=== PATIENT | male | born 1990 | race Hispanic/Latino ===

== ENCOUNTER 2024-08-25 19:56 | Emergency (ER) | payer SELFPAY ==
--- NOTE | 2024-08-25 19:59 | ED.GENMED ---
History of Present Illness
General
Chief Complaint: Alcohol Problem
Source: patient
Exam Limitations: none
Time Seen by Provider: 08/25/24 19:59
History of Present Illness
History of Present Illness:
See MDM
Past History
Past History
ED Past Medical History: None
ED Past Surgical History: None
Phy Exam
Physical Exam
Physical Exam:
See MDM
Scores
Withdrawal Assessment of Alcohol
Withdrawal Assessment Completed?: Not applicable
Course
Vital Signs
Initial and Last Documented VS:
Initial Vital Signs
Temp Pulse Resp BP Pulse Ox
97.9 F 76 18 126/76 99
08/25/24 20:11 08/25/24 20:11 08/25/24 20:11 08/25/24 20:11 08/25/24 20:11
Last Documented Vital Signs
Temp Pulse Resp BP Pulse Ox
97.9 F 76 18 126/76 99
08/25/24 20:11 08/25/24 20:11 08/25/24 20:11 08/25/24 20:11 08/25/24 20:11
MDM/Problems Addressed
Differential Diagnosis Includes:
HPI and MDM Narrative:
34-year-old male presenting for evaluation of alcohol intoxication. Per EMS, patient was intoxicated on a bench outside of a laund[employer]. The laundromat called the police. The police processed the patient and then called EMS. Patient does appear
intoxicated. Blood sugar within normal limits. No evidence of injury on exam. Patient does admit to drinking alcohol today. Will continue to monitor
Physical exam
General: Well appearing and non-toxic. Sitting in bed comfortably and smiling
HEENT: protecting airway
Neck: appears supple
CV: No evidence of cyanosis
Resp: No accessory muscle use
Abd: Non-distended
Extremities: No deformities
Neuro: alert. No focal deficits. Appears intoxicated
Psych: Normal affect
Skin: Intact
Problems Addressed including Acute and Chronic Conditions affecting care:
1. Alcohol intoxication
Acuity: acute
Prognosis: stable
Details: Will continue to monitor until patient is no longer clinically intoxicated
Updates
9:15 PM his friend came to pick him up. Patient is ambulated without difficulty
Differential Diagnosis (but not limited to): Alcohol intoxication, hypoglycemia
Testing considered: CT head but there is no evidence of injury and he admits to alcohol consumption
Drug therapy (if applicable): OTC meds, please see d/c instruction regarding Rx drugs
Amount and/or Complexity of Data Reviewed
Clinical info obtained from: Patient
External data reviewed: N/A
Labs I independently reviewed (but not limited to): Blood sugar normal
Radiology: N/A
Pulse Ox: not hypoxic
EKG independently reviewed: N/A
Pharmacy Technician Per Diem: N/A
Critical Care: N/A
Risk of Complication:
Social Determinants of health: Good social support
Discussed with other providers: N/A
Escalation of Care includes Admit/Obs: After being observed in the Emergency Department, pt stable for discharge.
Occasional wrong word or 'sound a like' substitutions may have occurred due to the inherent limitations of voice recognition software. Read the chart carefully and recognize, using context, where substitutions have occurred.
*Critical Care Note
Total Time (30-74mins, 75-104mins- exclusive of procedures): Not Applicable
ED Attending Note
-
Portions of this chart may have been created with voice recognition software.� Occasional wrong word or��sound alike� substitutions may have occurred due to the inherent limitations of voice recognition software.
Discharge Plan
Departure
Patient Disposition: Home (Routine Discharge)
Date of Disposition: 08/25/24
Time of Disposition: 21:16
Patient with high blood pressure during this ER visit?: No
Discharge Problem:
Alcohol intoxication
Instructions: Alcohol Use Disorder (DC)
Referrals:
PRIVATE,PHYSICIAN [Family Provider] -
Activity Restrictions/Additional Instructions:
Please return for any worsening symptoms.
You may return at any time if you have further concerns.
Please follow up with your doctor at the first available appointment, preferably this week.
Interventions
Interventions:
*Risk Screen - Suicide Last Done: 08/25/24 20:14
*General Assessment Last Done: 08/25/24 20:14
*Neglect/Abuse Screening Last Done: 08/25/24 20:14
*ED- Fall Risk Assessment Last Done: 08/25/24 20:14
*ED COVID-19 Vaccine History Last Done: 08/25/24 20:14
ED-Psychological Assessment Last Done: 08/25/24 20:15
Discharge Date and Time
Print Language: LATVIAN
[2024-08-25 20:11] VITALS: BP 126/76
[2024-08-25 20:17] LABS: Glucose - Point of Care 96 mg/dl (70-99)
== END 2024-08-25 21:19 | disposition home or self-care (01) ==
LOC: EMR 19:56
PROVIDERS: EMERGENCY PHYSICIAN Student in an Organized Health Care Education/Training Program
DX: F10.129 Alcohol abuse with intoxication, unspecified (principal)
CPT/HCPCS: 99283; 82962